=== PATIENT | female | born 1990 | race Caucasian/White ===

== ENCOUNTER 2022-04-28 22:34 | Emergency (ER) | payer OTHER | END 2022-04-28 23:30 | disposition home or self-care (01) | LOC: MADERS 22:34 | DX: L27.0 Generalized skin eruption due to drugs and medicaments taken internally (principal); R20.2 Paresthesia of skin; R06.00 Dyspnea, unspecified; T39.8X5A Adverse effect of other nonopioid analgesics and antipyretics, not elsewhere classified, initial encounter; F17.290 Nicotine dependence, other tobacco product, uncomplicated; I45.10 Unspecified right bundle-branch block; Z79.899 Other long term (current) drug therapy | CPT/HCPCS: 93005 ==

== ENCOUNTER 2024-05-31 11:12 | Emergency (ER) | payer OTHER | END 2024-05-31 11:36 | disposition home or self-care (01) | LOC: MADERS 11:12 | DX: F06.4 Anxiety disorder due to known physiological condition (principal); F17.290 Nicotine dependence, other tobacco product, uncomplicated | CPT/HCPCS: 99283 ==

== ENCOUNTER 2024-08-28 14:05 | Emergency (ER) | payer OTHER ==
[~2024-08-28 14:05] MED LIST: Iopamidol 370 76% 100 ML VIAL ONE
[2024-08-28] MEDS ORDERED: Aspirin Chewable 81 MG TAB ONE (14:26)
[2024-08-28] MEDS ORDERED: Acetaminophen 500 MG TAB ONE (14:26)
[2024-08-28] MEDS ORDERED: Methocarbamol 500 MG TAB ONE (14:26)
[2024-08-28 14:47] LABS: #Basophils 0.1 thou/uL (0.0-0.2); #Eosinophils 0.1 thou/uL (0.0-0.7); #Monocytes 0.5 thou/uL (0.11-0.59); #Neutrophils 3.9 thou/uL (1.40-6.50); %Basophils 1.3 % (0.0-1.0); %Eosinophils 1.9 % (0.0-10.0); %Monocytes 7.4 % (0.0-10.0); %Neutrophils 59.4 % (42.0-75.0); Mean Corpuscular HGB CONC 32.6 g/dL (32.0-36.0); Mean Corpuscular Hemoglobin 30.6 pg (27.0-31.0); Mean Platelet Volume 9.3 fL (7.4-10.4); Platelet Count 246 10x3/uL (130-400); RBC Distribution Width 11.2 % (11.5-14.5); Red Blood Cell (RBC) Count 4.57 mill/uL (4.20-5.40); White Blood Cell (WBC) Count 6.5 10x3/uL (4.8-10.8)
[2024-08-28 14:57] LABS: ALT (SGPT) 14 U/L (8-55); AST (SGOT) 15 U/L (5-34); Albumin 3.9 g/dL (3.5-5.0); Alkaline Phosphatase 56 U/L (40-110); Anion Gap 11 mmol/L (10-20); BUN (Urea Nitrogen) 8 mg/dL (7.0-18.7); Bilirubin, Total 0.4 mg/dL (0.2-1.2); Calc. Creatinine Clearance 0 mL/min (70-130); Calcium 8.8 mg/dL (7.8-10.44); Carbon Dioxide 25 mmol/L (22-29); Chloride 108 mmol/L (98-107); Estimated GFR 109; Globulin 2.9 g/dL (2.4-3.5); Glucose 102 mg/dL (70-105); Lipase 15 U/L (8-78); Potassium 3.9 mmol/L (3.5-5.1); Protein, Total 6.8 g/dL (6.0-8.3); Sodium 140 mmol/L (136-145)
[2024-08-28 14:58] LABS: Troponin I Less than 0.010 ng/mL (< 0.028)
[2024-08-28 15:24] LABS: Pregnancy Test - Urine (BHCG) Negative (Negative); Pregu Control Background? CLEAR/WHITE (CLR/WHITE); Pregu Control Bar Appear? YES (CONTROL BAR); Specific Gravity 1.023 (1.002-1.036)
== END 2024-08-28 16:28 | disposition home or self-care (01) ==
LOC: MADERS 14:05
DX: R07.89 Other chest pain (principal); M62.838 Other muscle spasm; F17.290 Nicotine dependence, other tobacco product, uncomplicated
CPT/HCPCS: 71275; 80053; 81025; 83605; 83690; 83880; 84484; 85025; 93005; Q9967

== ENCOUNTER 2024-09-18 04:14 | Emergency (ER) | payer OTHER ==
[2024-09-18 04:42] LABS: #Basophils 0.1 thou/uL (0.0-0.2); #Eosinophils 0.1 thou/uL (0.0-0.7); #Monocytes 0.6 thou/uL (0.11-0.59); #Neutrophils 4.8 thou/uL (1.40-6.50); %Eosinophils 1.9 % (0.0-10.0); %Lymphocytes 26.6 % (21.0-51.0); %Monocytes 8.2 % (0.0-10.0); %Neutrophils 62.3 % (42.0-75.0); Hematocrit 40.4 % (36.0-47.0); Hemoglobin 13.4 g/dL (12.0-16.0); Mean Corpuscular HGB CONC 33.1 g/dL (32.0-36.0); Mean Corpuscular Hemoglobin 30.8 pg (27.0-31.0); Mean Corpuscular Volume 93.1 fl (78.0-98.0); Mean Platelet Volume 8.8 fL (7.4-10.4); Platelet Count 216 10x3/uL (130-400); RBC Distribution Width 11.1 % (11.5-14.5); Red Blood Cell (RBC) Count 4.34 mill/uL (4.20-5.40); White Blood Cell (WBC) Count 7.7 10x3/uL (4.8-10.8)
[2024-09-18 05:00] LABS: ALT (SGPT) 12 U/L (8-55); AST (SGOT) 16 U/L (5-34); Albumin 3.8 g/dL (3.5-5.0); Alkaline Phosphatase 52 U/L (40-110); Anion Gap 13 mmol/L (10-20); BUN (Urea Nitrogen) 6 mg/dL (7.0-18.7); Bilirubin, Total 0.5 mg/dL (0.2-1.2); Calc. Creatinine Clearance 0 mL/min (70-130); Carbon Dioxide 25 mmol/L (22-29); Chloride 109 mmol/L (98-107); Estimated GFR 114; Globulin 2.8 g/dL (2.4-3.5); Glucose 92 mg/dL (70-105); Potassium 4.5 mmol/L (3.5-5.1); Protein, Total 6.6 g/dL (6.0-8.3); Sodium 142 mmol/L (136-145)
[2024-09-18 05:01] LABS: Troponin I Less than 0.010 ng/mL (< 0.028)
== END 2024-09-18 05:45 | disposition home or self-care (01) ==
LOC: MADERS 04:14
DX: R00.2 Palpitations (principal); F41.8 Other specified anxiety disorders; F42.9 Obsessive-compulsive disorder, unspecified; F17.290 Nicotine dependence, other tobacco product, uncomplicated
CPT/HCPCS: 71045; 80053; 84484; 85025; 93005; 94760